=== PATIENT | female | born 1995 | race Caucasian/White ===

== ENCOUNTER 2020-01-10 08:37 | Emergency (ER) | payer OTHER, SELFPAY ==
[2020-01-10 08:49] VITALS: BP 154/102; PULSE 20; RESP 20; TEMP 37.2; O2SAT 100
--- NOTE | 2020-01-10 08:49 | ED.GENADULT ---
HPI - General Adult General Chief complaint: Ear Stated complaint: Left ear pain/clogged Source: patient and RN notes reviewed Mode of arrival: ambulatory Limitations: no limitations History of Present Illness HPI narrative: This is a 24 years old female presents to the office for an evaluation of left ear pain for two days. Associated with cough for several days. She also stated that she cannot hear really well from her left ear.Stated her daughter was sick with similar symptoms about a week ago; however she is doing better now. She admits to smoking half a pack a day.She has tried [id number] cold and cough medicine for her symptoms.While she is here she also would like me to know that she has been struggling on how to control her panic attack. She has a doctor appointment on January regarding it. Related Data Home Medications Medication Instructions Recorded Confirmed loratadine [Claritin] 10 mg PO DAILY 01/10/20 01/10/20 montelukast [Singulair] 10 mg PO DAILY 01/10/20 01/10/20 propranolol 01/10/20 Allergies Allergy/AdvReac Type Severity Reaction Status Date / Time No Known Allergies Allergy Verified 01/10/20 08:52 Review of Systems Review of Systems: Narrative: CONSTITUTIONAL: Reports fever and feeling achy ENT:Reports sinus congestion, runny nose and left ear pain. CARDIOVASCULAR: Denies chest pain, palpitation RESPIRATORY: Denies dyspnea, wheezing. Reports cough GASTROINTESTINAL: Denies abdominal pain. Reports nausea, vomiting, diarrhea since last night; her is sick with similar illness. GENITOURINARY: Denies urinary symptoms SKIN: Denies rash MUSCULOSKELETAL: Denies acute back pain NEUROLOGIC: Denies lightheaded PMFSH Past Medical History Medical History (Updated 01/10/20 @ 09:32 by SHELLY Goldberg) Panic attack Social History Social History (Updated 01/10/20 @ 09:32 by SHELLY Goldberg) Smoking status: Current every day smoker Comments At time of signature, I agree with nursing past medical, surgical, social and family history. There is no relevant family history pertinent to the presenting complaint. Exam Narrative: Exam Narrative: GENERAL: This is a well-nourished, well-developed patient, in no apparent distress. EYES: Sclera clear/white. Vision is grossly intact. EARS: External ears normal, auditory canals clear and without drainage, TMs normal without perforation. Hearing grossly intact. NOSE: External nose normal with no obvious nasal discharge, nares without redness, no rhinorrhea. THROAT: Mucous membranes moist, posterior pharynx clear. NECK: Neck supple, non-tender without lymphadenopathy, masses or thyromegaly. CARDIOVASCULAR: Regular rate and rhythm without murmurs, gallops, or rubs. RESPIRATORY: Clear to auscultation. Breath sounds equal bilaterally. No wheezes, rales, or rhonchi. GASTROINTESTINAL: Abdomen soft, non-tender, nondistended. Bowel sounds are active. No hepato-splenomegaly, or palpable masses. No guarding. SKIN: warm, intact with no suspicious lesions or rash, good texture and turgor. NEURO: awake, alert, and oriented to person, place and time. There were no obvious focal neurologic abnormalities. Steady gait Haworth Coma Scale Eye Opening: Spontaneous 4 Haworth Coma Scale Motor: Obeys Commands 6 Alfonso Coma Scale Verbal: Oriented 5 Course Vital Signs Vital signs: Vital Signs Temperature 99.0 F 01/10/20 08:49 Pulse Rate 20 L 01/10/20 08:49 Respiratory Rate 20 01/10/20 08:49 Blood Pressure 154/102 H 01/10/20 08:49 Pulse Oximetry 100 01/10/20 08:49 Temperature 99.0 F 01/10/20 08:49 Pulse Rate 20 L 01/10/20 08:49 Respiratory Rate 20 01/10/20 08:49 Blood Pressure 154/102 H 01/10/20 08:49 Pulse Oximetry 100 01/10/20 08:49 Medical Decision Making [facility] Narrative Medical decision making narrative: Elevated BP noted: patient is informed that they may have pre-hypertension or hypertension based on a blood pr
[2020-01-10 09:14] VITALS: BP 138/95
== END 2020-01-10 09:15 | disposition home or self-care (01) ==
PROVIDERS: Emergency Provider Nurse Practitioner
DX: H66.92 Otitis media, unspecified, left ear (principal); F17.200 Nicotine dependence, unspecified, uncomplicated
CPT/HCPCS: 99213; G0463

== ENCOUNTER 2020-02-04 16:52 | Emergency (ER) | payer OTHER, SELFPAY ==
[2020-02-04 17:00] VITALS: BP 142/87; PULSE 105; RESP 18; TEMP 37.1; O2SAT 100
--- NOTE | 2020-02-04 17:17 | ED.DENTAL ---
HPI - Dental/Oral General Chief complaint: Dental/Oral Stated complaint: tooth ache Time Seen by Provider: 02/04/20 17:05 Source: patient and RN notes reviewed Mode of arrival: ambulatory Limitations: no limitations History of Present Illness HPI Narrative: Patient presents today complaining of left upper dental pain x3 days and has been worsening since onset with facial swelling. Denies fever, shortness of breath, difficulty swallowing. She has been taking ibuprofen at home for pain. Currently rates her pain 8/10. She has an appointment set up for next week, but the office wants her on antibiotics before she is seen. She was on Augmentin 3 weeks ago for otitis media. MD Complaint: tooth pain Related Data Home Medications Medication Instructions Recorded Confirmed loratadine [Claritin] 10 mg PO DAILY 01/10/20 02/04/20 montelukast [Singulair] 10 mg PO DAILY 01/10/20 02/04/20 Allergies Allergy/AdvReac Type Severity Reaction Status Date / Time No Known Allergies Allergy Verified 02/04/20 17:10 Review of Systems Review of Systems: Narrative: CONSTITUTIONAL: Denies body aches, fever, chills, or sweats. EYES: Denies visual changes, redness, or discharge. ENT: Denies rhinorrhea, congestion, sore throat, or otalgia. Dental pain, facial swelling CARDIOVASCULAR: Denies chest pain, palpitations, or edema. RESPIRATORY: Denies cough or dyspnea. GASTROINTESTINAL: Denies abdominal pain, nausea, vomiting, or diarrhea. GENITOURINARY: Denies dysuria or hematuria. SKIN: Denies rash, itching, or wounds. MUSCULOSKELETAL: Denies back pain, joint pain, or myalgia. NEUROLOGIC: Denies headache, numbness, tingling, or weakness. PSYCH: Denies depression or anxiety. [facility] Past Medical History Medical History (Updated 02/04/20 @ 17:23 by Dorcas Brewer, SHELLY, ) Panic attack Social History Social History (Updated 01/10/20 @ 09:32 by SHELLY Goldberg) Smoking status: Current every day smoker Comments At time of signature, I have reviewed and agree with nursing past medical, surgical, social and family history unless otherwise noted. Please see nursing chart for further information. There is no relevant family history pertinent to the presenting complaint Exam Narrative: Exam Narrative: GENERAL: Well-appearing, well-nourished, and in no acute distress. HEAD: Normocephalic, atraumatic. EYES: EOMI. No redness or drainage. Conjunctivae normal. ENT: Mucous membranes pink and moist. Pain and large khadra to took #14. Mild left facial swelling. NECK: Normal AROM. Supple. No lymphadenopathy. CHEST: No respiratory distress. Clear to auscultation. HEART: Regular rate and rhythm. No murmur appreciated. Normal peripheral pulses. EXTREMITIES: Normal range of motion. No edema. SKIN: Warm, dry, no rash. Capillary refill normal. Normal skin turgor. NEURO: No focal deficits. Alert and oriented x3. Gait steady. PSYCH: Normal affect. No signs of depression or anxiety. Course Vital Signs Vital signs: Vital Signs Temperature 98.8 F 02/04/20 17:00 Pulse Rate 105 H 02/04/20 17:00 Respiratory Rate 18 02/04/20 17:00 Blood Pressure 142/87 H 02/04/20 17:00 Pulse Oximetry 100 02/04/20 17:00 Temperature 98.8 F 02/04/20 17:00 Pulse Rate 105 H 02/04/20 17:00 Respiratory Rate 18 02/04/20 17:00 Blood Pressure 142/87 H 02/04/20 17:00 Pulse Oximetry 100 02/04/20 17:00 Reviewed. Pt has been instructed to follow up with her PCP regarding her elevated blood pressure today. MDM - Dental/Oral Differential Diagnosis Differential diagnosis: Likely gingival abscess, dental caries, toothache, dental abscess and fracture of tooth Critical Care Time Critical Care Time Critical Care Time: No Discharge Plan Discharge Clinical Impression: Toothache Patient Disposition: Home, Self-Care Condition: Stable Instructions: Dental Abscess (ED) Additional Instructions: Please take clindamycin as prescri
== END 2020-02-04 17:25 | disposition home or self-care (01) ==
PROVIDERS: Emergency Provider Nurse Practitioner
DX: K08.89 Other specified disorders of teeth and supporting structures (principal); F17.200 Nicotine dependence, unspecified, uncomplicated
CPT/HCPCS: 99213; G0463

== ENCOUNTER 2025-05-18 08:01 | Emergency (ER) | payer OTHER, SELFPAY ==
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
--- OUTSIDE RECORDS SUMMARY | 2025-05-18 08:03 | XMS_ITS | Clinical Summary ---
Author Organization [facility] Address [address] [place] [address] Phone Care Team Providers Care Deck Engine Operator Name Role Phone Oswald Carbajal MD Primary Care Provider Carola Eldridge APRN, FINE UNHAIRER Unavailable Allergies No known active allergies Medications MONTELUKAST SODIUM PO Take by mouth. Activ e fenofibrate 160 MG Tablet TAKE 1 TABLET BY MOUTH EVERY DAY 0 Active busPIRone (BUSPAR) 10 MG Tablet TAKE 1 TABLET BY MOUTH TWICE A DAY NEEDED 0 Active FLUoxetine (PROZAC) 40 MG Capsule TAKE 1 CAPSULE BY MOUTH EVERY DAY 0 Active Loratadine (CLARITIN PO) Take by mouth. A ctive HYDROcodone-acet aminophen (NORCO) 5-325 MG TabletIndication s:DDD (degenerative disc disease), thoracic Take 1 Tablet by mouth every 8 hours as needed for Moderate or more severe pain. 12 Tablet 2 Active Additional Information Patient not taking.Reported on 05/10/2023 naproxen (NAPROSYN) 500 MG Tablet Take 1 Tablet by mouth 2 times daily as needed for Mild or more severe pain. 20 Tablet 2 Active Additional Information Patient not taking.Reported on 05/08/2023 Meloxicam 15 MG TABLET DISPERSIBLE Take by mouth. Act kiera Norgestimate-eth inyl estradiol (Estarylla) 0.25-35 MG-MCG Tablet Take 1 Tablet by mouth daily. Active ALBUTEROL IN take by inhalation. Active Active Problems Problem Noted Date Diagnosed Date ENEDR (obstructive sleep apnea) 05/10/2023 Obesity due to excess calories without serious c omorbidity 05/10/2023 Social History Tobacco Use Types Packs/Day Years Used Date Smoking Tobacco: Former Cigarettes Q uit: 02/05/2023 Smokeless Tobacco: Never Tobacco Cessation:Counseling Given: Not Answered Sexually Active Control Partners Comments Not Currently Comments No Sex and Gender Information Value Date Recorded Sex Assigned at Not on file Legal Sex Female 8:24 AM CDT Gender Identity Not on file Sexual Orientation Not on file Last Filed Vital Signs Vital Sign Reading Time Taken Comments Blood Pressure 120/70 05/10/2023 11:17 AM CDT Pulse 90 05/10/2023 11:17 AM CDT Temperature 36.4 C (97.5 F) 05/10/2023 11:17 AM CDT Respiratory Rate 16 09/23/2022 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 Oxygen Saturation 98% 05/10/2023 11:17 AM CDT Inhaled Oxygen Concentration - - Weight 108.9 kg (240 lb) 05/10/2023 11:17 AM CDT Height 165.1 cm (5' 5) 09/23/2022 1:42 PM ASSISTANT FAMILY TEACHER Body Mass Index 39.94 09/23/2022 1:42 PM ASSISTANT FAMILY TEACHER Plan of Treatment Health Maintenance Due Date Last Done Comments Hepatitis C Virus (HCV) Screening 1995 TdaP Immunization 1995 Human Papillomavirus (HPV) Immunization (1 - 3-dose series) 2010 Hepatitis B Immunization (1 of 3 - 19+ 3-dose series) 2014 Pap Smear 2016 SARS-COV-2 Immunization ( - season) 2024 Influenza Immunization (#1) 2025 Respiratory Syncytial Virus (RSV) Immunization (Adult) (1 - 1-dose 75+ series) 2070 Meningococcal Immunization (ACWY) Aged Out No longer eligible based on patient's age to complete this topic Pneumococcal Immunization Combined Aged Out No longer eligible based on patient's age to complete this topic Rotavirus Immunization Aged Out No lo nger eligible based on patient's age to complete this topic Insurance MEDICAID [place] [employer] [facility] Care Teams Deck Engine Operator Relationship Specialty Start Date End Date Oswald Carbajal MD [address] [facility] [address] [place] [address] PCP - General Internal Medicine 05/10/23 Carola Eldridge APRN, FINE UNHAIRER #[address] [address] Nurse Practitioner Advanced Practice Nurse 05/10/23
--- OUTSIDE RECORDS SUMMARY | 2025-05-18 08:03 | XMS_ITS | Encounter Summary ---
Author Organization [facility] Address [facility] [facility] [place] [address] Care Team Providers Care Search Consultant Name Role Phone Liss Casillas APRN-EMERGENCY PHYSICIAN Unavailable [phone] Pcp, None Primary Care Provider Belén Pineda APJESSEE-EMERGENCY PHYSICIAN Primary Care Provider [phone] Reason for Visit * Reason Onset Date Comments Appointment 03/06/2025 Encounter Details Date Type Department Care Team (Late st Contact Info) Description 03/06/2025 Telephone [facility] - DOCK ASSOCIATE [address] [facility] [address] [place] [address] Nuria Adame APRN-EMERGENCY PHYSICIAN [address] [place] [address] Appointment Social History Tobacco Use Types Packs/Day Years Used Date Smoking Tobacco: Every Day Cigarettes 0.5 1.1 Started: 03/2024 Smokeless Tobacco: Never Alcohol Use Standard Drinks/Week Comments No 0 (1 standard drink = 0.6 oz pur e alcohol) Education Answer Date Recorded What is the highest level of school you have completed or the highest degree you have received? 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 Not on file Not on file Not on file documented as of this encounter Plan of Treatment Upcoming Encounters Date Type Department Care Team (Late st Contact Info) Description 06/03/2025 11:00 AM CDT Office Visit [facility] - DOCK [facility]OCIATE [address] [facility] [address] [place] [address] Trent Hicks MD [address] [facility] [address] [place] [address] documented as of this encounter Visit Diagnoses Not on filedocumented in this encounter Care Teams Search Consultant Relationship Specialty Start Date End Date Pcp, None [address] [place] [address] PCP - General 12/23/24 05/04/25 Belén Villalta APNP-EMERGENCY PHYSICIAN [address] [facility] [place] [address] PCP - General Family Medicine 05/05/25 Liss Casillas, COAT CHECK ATTENDANT-EMERGENCY PHYSICIAN [address] [place] [place], [place] [id number] Nurse Practitioner Family 05/06/18 documented as of this encounter
--- OUTSIDE RECORDS SUMMARY | 2025-05-18 08:03 | XMS_ITS | Clinical Summary ---
Author Organization [facility] Address [address] [place] [address] Care Team Providers Care Business Law Professor Name Role Phone Liss Casillas KAIAKO KURA TUARUA-CERTIFIED MASTER LOCKSMITH Unavailable [phone] Belén Villalta APNP-CERTIFIED MASTER LOCKSMITH Primary Care Provider [phone] Source Comments [facility],non-owned Affiliates and Associated Physician Practices is amultiple site organization consisting of ambulatory clinics and hospital sitesin [place], [place], [place] and [place]. This disclosure is being madepursuant to the Care Everywhere program and may not contain all information available regarding this patient. Last updated 18.[facility] Allergies No known active allergies Medications * Be aware that medications may not be up to date on this document. Alwaysverify current medications with the patient. albuterol HFA (PROVENTIL;VENT KRYSTLE;PROAIR) 108 (90 Base) MCG/ACT inhaler Take 2 (two) puffs by mouth every 4 hours as needed 12 9 Active ibuprofen (MOTRIN) 800 MG tablet Take 1 (one) tablet by mouth 3 times daily 0 9 Active loratadine (CLARITIN) 10 MG tablet Take 1 (one) tablet by mouth once daily 9 Active busPIRone (BUSPAR) 10 MG tablet 0 Active FLUoxetine (PROZAC) 20 MG tablet Take 1 (one) tablet by mouth once daily 0 Active fenofibrate (LOFIBRA) 160 MG tablet Take 1 (one) tablet by mouth once daily 0 Active YURIDIA 0.25-35 MG-MCG tablet Take 1 (one) tablet by mouth once daily 1 Active vitamin D3-cholecalcife rol (CHOLECALCIFERO L) 25 MCG (1000 UNITS) tablet Take 1 (one) tablet by mouth once daily 30 tablet 4 1 Active Additional Information Patient not taking.Reported on 05/05/2025 meloxicam (Mobic) 15 MG tablet TAKE 1 TABLET BY MOUTH EVERY DAY NEEDED WITH MEAL 4 Active blood glucose (OneTouch Verio) test stripIndication s:Type 2 diabetes mellitus without complication, unspecified whether middle or intermediate school principal insulin use (HCC) Use 1 (one) strip 5 times daily 150 strip 11 5 Active ONETOUCH DELICA PLUS 30G FINE LANCETSIndicati ons:Type 2 diabetes mellitus without complication, unspecified whether detention insulin use (HCC) Use 1 Each 5 times daily 100 Each 11 5 Active Blood Glucose Monitoring Suppl (OneTouch Verio Flex System) w/Device KITIndications: Type 2 diabetes mellitus without complication, unspecified whether detention insulin use (HCC) Use 1 kit as directed 1 kit 5 Active metFORMIN ER 24hr (Glucophage XR) 500 MG tabletIndicatio ns:New onset type 2 diabetes mellitus (HCC) Take 1 (one) tablet by mouth daily with dinner 30 tablet 3 5 Active Vit-Fe Fumarate-FA (Trinate) TABS Take 1 tablet by mouth once daily 30 tablet 3 5 Active Lantus SoloStar penIndications: Type 2 diabetes mellitus treated with insulin (HCC) Starting dose: inject 20 units in the evening. Increase up to 50 units per day only as instructed. 15 mL 6 5 Active Insulin Pen Needle 32G X 4 MM MISCIndications :Type 2 diabetes mellitus treated with insulin (HCC) 1 Each by Injection route once for 1 dose 100 Each 6 5 05/05/20 25 Active Problems Problem Noted Date Diagnosed Date New onset type 2 diabetes mellitus 02/15/2025 Female infertility 02/15/2025 Overview (02/15/2025): No in 7 years. Irregular, infrequent menses (nonexistent?). In the past she had an US which showed some scar which appeared to be clear with a saline US and balloon procedure. Hypertriglyceridemia without hypercholesterolemi a 02/15/2025 Overview (02/15/2025): Treated in past with fenofibrate, cholesterol 191, triglycerides 676, but patient on an all meat diet Nonalcoholic steatohepatitis (ARMSTRONG) 02/15/2025 Mild intermittent asthma without complication Overview (02/15/2025): Uses albuterol infrequently Type 2 diabetes mellitus wit hout complication, without long-term current use of insulin 02/10/2025 Overview (02/10/2025): Family hx MGF and his siblings Obesity, Class III, BMI 40-49.9 (morbid obesity) 02/10/2025 Overview (02/15/2025): Lost about 10 lb over past 3 months History of delivery 02/10/2025 Overview (02/15/2025): As a teenager 34 weeks Generalized anxiety disorder 02/10/2025 Overview (02/15/2025): Treated with buspirone and fluoxetine ENDER (obstructive sleep apnea) 05/10/2023 Overview (02/15/2025): Uses CPAP PCOS (polycystic ovarian syndrome) 02/25/2018 Overview (02/15/2025): Previously treated with metformin Current smoker 01/19/2016 Overview (02/15/2025): Current smoker, 5-10 per day, smoked x 15 years Encounters Date Type Department Care Team Description 05/05/2025 3:20 PM CDT Office Visit [facility] - MANAGER OF ORGANIZATIONAL DEVELOPMENT [address] [place] [address] Trent Otero MD New onset type 2 diabetes mellitus (HCC) (Primary Dx) 05/05/2025 2:30 PM CDT Office Visit [facility] - MANAGER OF ORGANIZATIONAL DEVELOPMENT [address] [place] [address] Julissa Jara, RD/LD Type 2 diabetes mellitus treated with insulin (HCC) (Primary Dx); Obesity, Class III, BMI 40-49.9 (morbid obesity) (HCC); Encounter for preconception consultation; PCOS (polycystic ovarian syndrome) 05/05/2025 Travel 03/09/2025 Telephone [facility] - MANAGER OF ORGANIZATIONAL DEVELOPMENT [address] [place] [address] Katarina Storm MD Appointment 03/06/2025 Telephone [facility] - MANAGER OF ORGANIZATIONAL DEVELOPMENT [address] [place] [address] Nuria Adame APRN-CERTIFIED MASTER LOCKSMITH Appointment 02/18/2025 Refill [facility] - MANAGER OF ORGANIZATIONAL DEVELOPMENT [address] [place] [address] Katarina Storm MD Refill Request 02/17/2025 Refill [facility] - MANAGER OF ORGANIZATIONAL DEVELOPMENT [address] [place] [address] Katarina Storm MD Refill Request from Last 3 Months Family History Medical History Relation Name Comments CAD (Coronary Artery Disease) Father CAD (Coronary Artery Disease) Maternal Grandfather Diabetes - Type 2 Maternal Grandfather Cancer - Breast Maternal Grandmother Cancer - Uterine Maternal Grandmother Mood Disorder Mother CAD (Coronary Artery Disease) Paternal Grandfather Relation Name Status Comments Father Maternal Grandfather Maternal Grandmother Mother Paternal Grandfather Social History Tobacco Use Types Packs/Day Years Used Date Smoking Tobacco: Every Day Cigarettes 0.5 1.1 Started: 03/2024 Smokeless Tobacco: Never Tobacco Cessation:Ready to Q uit: Yes; Counseling Given: Yes Alcohol Use Standard Drinks/Week Comments No 0 (1 standard drink = 0.6 oz pur e alcohol) Education Answer Date Recorded What is the highest level of school you have completed or the highest degree you have received? 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 Not on file Not on file Not on file Last Filed Vital Signs Vital Sign Reading Time Taken Comments Blood Pressure 132/84 05/05/2025 2:14 PM CDT Pulse 104 02/25/2018 9:45 AM CDT Temperature 35.6 C (96.1 F) 01/17/2021 1:52 PM CDT Respiratory Rate - - Oxygen Saturation - - Inhaled Oxygen Concentration - - Weight 117 kg (258 lb) 05/05/2025 2:14 PM CDT Height 165.1 cm (5' 5) 05/05/2025 2:14 PM CDT Body Mass Index 42.93 05/05/2025 2:14 PM CDT Plan of Treatment Upcoming Encounters Date Type Department Care Team (Late st Contact Info) Description 06/03/2025 11:00 AM CDT Office Visit [facility] - MANAGER OF ORGANIZATIONAL DEVELOPMENT [address] [place] [address] Trent Hicks MD [address] [place] [address] Health Maintenance Due Date Last Done Comments HIV SCREENING 2010 HEPATITIS C SCREENING 11/18/2013 DTAP/TDAP/TD VACCINES (1 - Tdap) 2014 HEPATITIS B VACCINE (1 of 3 - 19+ 3-dose series) 2014 PNEUMOCOCCAL VACCINE (1 of 2 - PCV) 2014 PAP SMEAR 2016 HPV VACCINE (1 - 3-dose SCDM series) 2022 COVID-19 VACCINE ( season) 2024 DEPRESSION SCREENING 10/29/2024 DIABETES RETINOPATHY SCREENING 02/10/2025 DIABETES-FOOT EXAM WITH MONOFILAMENT 02/10/2025 INFLUENZA VACCINE (#1) 2025 DIABETES-HGB A1C 11/05/2025 05/05/2025, 05/2025, 02/10/2025, Additional history exists DIABETES - URINE PROTEIN SCREENING 02/10/2026 02/10/2025 DIABETES-SERUM CREATININE 02/10/2026 02/10/2025 ZOSTER VACCINE (1 of 2) 2045 HIB VACCINE Aged Out No longer eligi ble based on patient's age to complete this topic MENINGOCOCCAL (Group B) VACCINE SHARED DECISION-MAKING Aged Out No longer eligible based on patient's age to complete this topic MENINGOCOCCAL GROUPS A/C/Y/W VACCINE Aged Out No longer eligible based on patient's age to complete this topic Procedures Procedure Name Priority Date/Time Associated Diagnosis Comments HEMOGLOBIN A1C - POINT OF CARE (AMB) [facility] Routine 05/05/2025 2:47 PM CDT New onset type 2 diabetes mellitus (HCC) HEMOGLOBIN A1C - POINT OF CARE (AMB) [facility] Routine 05/05/2025 2:33 PM CDT New onset type 2 diabetes mellitus (HCC) MICROALB/CREAT RATIO URINE RANDOM PANEL Routine 02/10/2025 1:45 PM CDT New onset type 2 diabetes mellitus (HCC) Encounter for preconception consultation COMPREHENSIVE METABOLIC PANEL 02/10/2025 1:45 PM CDT from Last 3 Months or Most Recently Relevant to Health Maintenance Results * HEMOGLOBIN A1C - POINT OF CARE (AMB) [facility] (05/05/2025 2:47 PM CDT) Only the most recent of2 resultswithin the time period is included. Hemoglobin A1c POCT 6.3 % [facility] [address] BLOOD SPECIMEN / Unknown 05/05/2025 2:47 PM CDT us Trent Otero MD LAB - POINT OF CARE ORDERABLES Final Result [address] [place] [address], [facility] [phone] * (ABNORMAL) MICROALB/CREAT RATIO URINE RANDOM PANEL (02/10/2025 1:45 PM CDT) Creatinine Urine 203 20 - 275 mg/dL [facility] Microalbumin Urine 10.8 mg/dL [facility] Comment: Reference Range Not established Microalbumin/Creat inine Ratio 53(H) <30 mg/g creat [facility] Comment: The ADA defines abnormalities in albumin excretion as follows: Albuminuria Category Result (mg/g creatinine) Normal to Mildly increased <30 Moderately increased 30-299 Severely increased > OR = 300 The ADA recommends that at least two of three specimens collected within a 3-6 month period be abnormal before considering a patient to be within a diagnostic category. Test Performed at: [facility] [address] ELISEO PARKINSON MD Urine URINE SPECIMEN OBTAINED BY CLEAN CATCH PROCEDURE / Unknown 02/10/2025 1:45 PM CDT 02/10/2025 1:45 PM CDT us Janeth Li MD LAB - URINE CHEMISTRY ORDERABL ES Final Result Performing Organization Address City/[facility]/ZIP Co de Phone Number [facility] [address] [place] [address] * COMPREHENSIVE METABOLIC PANEL (02/10/2025 1:45 PM CDT) Glucose 88 65 - 99 mg/dL [facility] Comment: Fasting reference interval BUN 14 7 - 25 mg/dL [facility] Creatinine 0.56 0.50 - 0.96 mg/dL [facility] eGFR by Cystatin C 127 > OR = 60 mL/min/1. 73m2 [facility] BUN/Creatinine Ratio SEE NOTE: 6 - 22 (calc) [facility] Comment: Not Reported: BUN and Creatinine are within reference range. Sodium 137 135 - 146 mmol/L [facility] Potassium 4.1 3.5 - 5.3 mmol/L [facility] Chloride 101 98 - 110 mmol/L [facility] CO2 25 20 - 32 mmol/L [facility] Calcium 9.7 8.6 - 10.2 mg/dL [facility] Protein Total 7.4 6.1 - 8.1 g/dL [facility] Albumin 4.6 3.6 - 5.1 g/dL [facility] Globulin Total 2.8 1.9 - 3.7 g/dL (calc) [facility] Albumin/Globulin Ratio 1.6 1.0 - 2.5 (calc) [facility] Bilirubin Total 0.5 0.2 - 1.2 mg/dL [facility] Alkaline Phosphatase 86 31 - 125 U/L [facility] AST 19 10 - 30 U/L [facility] ALT 25 6 - 29 U/L [facility] Comment: Test Performed at: [facility] [id number] [place] [address] ELISEO PARKINSON MD 02/10/2025 1:45 PM CDT 02/10/2025 1:45 PM CDT Janeth Li MD LAB - CHEMISTRY ORDERABLES Fin al Result Performing Organization Address City/State/[facility] Co de Phone Number [facility] [address] [place] [address] from Last 3 Months or Most Recently Relevant to Health Maintenance Insurance [facility] [employer] [facility] [facility] [employer] [facility] [facility] Member Subscriber Plan / Payer (Ef fective 2019-Present) Name:[place] Relation to Subscriber:Spouse Name:ANJUM PARISH Subscriber ID:Not on file Date of :1992 Payer ID:Not on file Type:PPO Address: [address] [employer] [facility] [facility] Member Subscriber Plan / Payer (Ef fective 2019-Present) Name:[place] Relation to Subscriber:Spouse Name:ANJUM PARISH Subscriber ID:Not on file Date of :1992 Payer ID:Not on file Type:PPO Address: [address] [facility] [employer] [facility] [facility] Member Subscriber Plan / Payer (Ef fective 2019-Present) Name:[place] Relation to Subscriber:Spouse Name:ANJUM PARISH Subscriber ID:Not on file Date of :1992 Payer ID:Not on file Type:PPO Address: [place] [id number] [facility] [employer] Member Subscriber Plan / Payer (Ef fective 2019-Present) Name:[place] Relation to Subscriber:Spouse Name:ANJUM PARISH Subscriber ID:Not on file Date of :1992 Payer ID:Not on file Type:PPO Address: [place] [id number] [facility] Member Subscriber Plan / Payer (Ef fective 2019-Present) Name:Grey[place] Relation to Subscriber:Spouse Name:ANJUM PARISH Subscriber ID:Not on file Date of :1992 Payer ID:Not on file Type:PPO Address: [address] Member Subscriber Plan / Payer (Ef fective for All Dates) Name:Leigh Parisha Celeste Relation to Subscriber:Self Name:GREY[place]IL Payer ID:Not on file Group ID:Not on file Type:Medicaid [place] Address: [address] [employer] Member Subscriber Plan / Payer (Ef fective 2019-Present) Name:[place] Relation to Subscriber:Spouse Name:GREYANJUM Subscriber ID:Not on file Date of :1992 Payer ID:Not on file Type:PPO Address: [address] Member Subscriber Plan / Payer (Ef fective for All Dates) Name:Leigh Parisha Celeste Relation to Subscriber:Self Name:[place] Payer ID:Not on file Group ID:Not on file Type:Medicaid [place] Address: [address] [employer] Member Subscriber Plan / Payer (Ef fective 2019-Present) Name:[place] Relation to Subscriber:Spouse Name:ANJUM PARISH Subscriber ID:Not on file Date of :1992 Payer ID:Not on file Type:PPO Address: [address] [facility] Member Subscriber Plan / Payer (Ef fective 2019-Present) Name:[place] Relation to Subscriber:Spouse Name:GREYANJUM Subscriber ID:Not on file Date of :1992 Payer ID:Not on file Type:PPO Address: [address] [facility] [facility] Member Subscriber Plan / Payer (Ef fective 2019-) Name:[place] Relation to Subscriber:Spouse Name:ANJUM PARISH Subscriber ID:Not on file Date of :1992 Payer ID:Not on file Type:PPO Address: [address] [facility] [facility] Member Subscriber Plan / Payer (Ef fective 2019-Present) Name:[place] Relation to Subscriber:Spouse Name:ANJUM PARISH Subscriber ID:Not on file Date of :1992 Payer ID:Not on file Type:PPO Address: [address] [facility] Member Subscriber Plan / Payer (Ef fective 2019-Present) Name:[place] Relation to Subscriber:Spouse Name:GREYANJUM Subscriber ID:Not on file Date of :1992 Payer ID:Not on file Type:PPO Address: [address] [facility] Member Subscriber Plan / Payer (Ef fective 2019-Present) Name:[place] Relation to Subscriber:Spouse Name:GREYANJUM Subscriber ID:Not on file Date of :1992 Payer ID:Not on file Type:PPO Address: [address] [facility] Member Subscriber Plan / Payer (Ef fective 2019-Present) Name:[place] Relation to Subscriber:Spouse Name:ANJUM PARISH Subscriber ID:Not on file Date of :1992 Payer ID:Not on file Type:PPO Address: [address] Member Subscriber Plan / Payer (Ef fective for All Dates) Name:[place] Relation to Subscriber:Self Name:[place] PAR[place] Payer ID:Not on file Group ID:Not on file Type:Medicaid [place] Address: [address] [facility] Member Subscriber Plan / Payer (Ef fective 2019-Present) Name:[place] Relation to Subscriber:Spouse Name:ANJUM PARISH Subscriber ID:Not on file Date of :1992 Payer ID:Not on file Type:PPO Address: [address] Member Subscriber Plan / Payer (Ef fective for All Dates) Name:[place] Relation to Subscriber:Self Name:[place] Payer ID:Not on file Group ID:Not on file Type:Medicaid [place] Address: [address] [employer] Member Subscriber Plan / Payer (Ef fective 2019-Present) Name:[place] Relation to Subscriber:Spouse Name:ANJUM PARISH Subscriber ID:Not on file Date of :1992 Payer ID:Not on file Type:PPO Address: [place] [id number] [facility] Member Subscriber Plan / Payer (Ef fective for All Dates) Name:[place] Relation to Subscriber:Self Name:BASIL PARISH Payer ID:Not on file Group ID:Not on file Type:Medicaid [place] Address: [address] [employer] Member Subscriber Plan / Payer (Ef fective 2019-Present) Name:[place] Relation to Subscriber:Spouse Name:ANJUM PARISH Subscriber ID:Not on file Date of :1992 Payer ID:Not on file Type:PPO Address: [address] Member Subscriber Plan / Payer (Ef fective for All Dates) Name:[place] Relation to Subscriber:Self Name:BASIL PARISH Payer ID:Not on file Group ID:Not on file Type:Medicaid [place] Address: [address] [employer] Member Subscriber Plan / Payer (Ef fective 2019-Present) Name:[place] Relation to Subscriber:Spouse Name:ANJUM PARISH Subscriber ID:Not on file Date of :1992 Payer ID:Not on file Type:PPO Address: [address] [facility] MEDICAID - OUT OF [facility] [address] [address] SYSTEMS MEDICAID - [place] [address] [address] [place] [address] [facility] MEDICAID - OUT OF STATE Member Subscriber Plan / Payer (Ef fective for All Dates) Name:[place] Relation to Subscriber:Self Name:BASIL PARISH Payer ID:Not on file Group ID:Not on file Type:Medicaid Address: [address] [facility] MEDICAID - [facility] [employer] MEDICAID - OUT OF [facility] Care Teams Business Law Professor Relationship Specialty Start Date End Date Belén Villalta APNP-CNP [address] [place] [address], [address] [place] [address] PCP - General Family Medicine 05/05/25 Liss Casillas APRN-LUKE [address] [place], [place] [id number] Nurse Practitioner Family 05/06/18
--- OUTSIDE RECORDS SUMMARY | 2025-05-18 08:03 | XMS_ITS | Continuity of Care Document ---
Author Organization [facility] Address [address] [place] [address] [address] [place] [address] Phone Care Team Providers Care Aluminum Siding Mechanic Name Role Phone Alicia Li Unavailable Unavailable Advance Directives Directive Yes / No Effective Date File Name No Information Encounters Encounter Description Practice Location Reason(s) For Visit Diagnoses Date Provider Providers Copied on Encounter formerly [facility], [address] [place] [address] [address], [place], [place], [id number], [place] tel:[phone] [facility] No Information Martin-1 0-200 2 Jen Vragas. [address] [facility] [address] , [address], [place], [address], [place]. tel:[phone] Family History Family Member Type Diagnosis Age At Onset No Information Payers Payer name Insurance type Covered constitution party ID Authoriza tion(s) Medicaid [facility] [id number] Social History Type Description Quantity Date Captured Comments Sex Female Smoking Status No Information Chief Complaint And Reason For Visit No Information Reason For Referral Reason For Referral No Information History Of Present Illness Encounter Date Complaint History Of Prese nt Illness No Information Functional Status Date Functional Assessmen t No Information Instructions Date Instruction Additional Infor mation No Information Assessments Type Assessment Date No Information Patient Care Teams Name Effective Dates (start - stop) Status Members No Information
--- OUTSIDE RECORDS SUMMARY | 2025-05-18 08:06 | XMS_ITS | Continuity of Care Document ---
Author Organization [facility] Address [address] [place] [address] [address] [place] [address] Phone Care Team Providers Care Integration Project Manager Name Role Phone Alicia Li Unavailable Unavailable Advance Directives Directive Yes / No Effective Date File Name No Information Encounters Encounter Description Practice Location Reason(s) For Visit Diagnoses Date Provider Providers Copied on Encounter [facility], [address] [place] [address] [address], [place], [place], [id number], [place] tel:[phone] [facility] No Information Martin-1 0-[address] 2 Jen Vargas. [address] [facility] , [address], [place], [address], [place]. tel:[phone] Family History Family Member Type Diagnosis Age At Onset No Information Payers Payer name Insurance type Covered constitution party ID Authoriza tion(s) Medicaid PENDING SALE TO [facility] [id number] Social History Type Description Quantity Date Captured [...]
[2025-05-18 08:25] VITALS: BP 154/88; PULSE 87; RESP 16; TEMP 36.4; O2SAT 100
== END 2025-05-18 08:22 | disposition home or self-care (01) ==
PROVIDERS: Emergency Provider Nurse Practitioner; PCP Nurse Practitioner Family
DX: S93.402A Sprain of unspecified ligament of left ankle, initial encounter (principal); S96.912A Strain of unspecified muscle and tendon at ankle and foot level, left foot, initial encounter; X58.XXXA Exposure to other specified factors, initial encounter; F17.200 Nicotine dependence, unspecified, uncomplicated
CPT/HCPCS: 99212; G0463

== ENCOUNTER 2025-10-01 12:27 | Emergency (ER) | payer OTHER, SELFPAY ==
--- NOTE | 2025-10-01 12:31 | ED.URI ---
HPI - URI/Sore Throat General Chief Complaint: Upper Respiratory Infection Stated Complaint: chest tight / congestion/cough Time Seen by Provider: 10/01/25 12:35 Source: patient, RN notes reviewed and old records reviewed Mode of arrival: ambulatory Limitations: no limitations History of Present Illness HPI Narrative: 39-year-old female presents to the [facility] with 5 day history of sore throat, cough and congestion. Patient has a history of diabetes. Denies any fevers, chest pain, abdominal pain. States that she has taken TheraFlu, NyQuil and ibuprofen. Onset (ago): day(s) (5) Treatments prior to arrival: cold medicine Related Data Home Medications ?Medication ?Instructions ?Recorded ?Confirmed ?Last Taken ?Type buspirone 10 mg tablet mg 05/18/25 Unknown History insulin glargine 100 unit/mL (3 unit subcut 05/18/25 Unknown History mL) subcutaneous pen (Lantus Solostar U-100 Insulin) vits,calcium no.73-iron tablet 05/18/25 Unknown History fum 28 mg iron-folic acid 1 mg tablet (Trinate) Allergies Allergy/AdvReac Type Severity Reaction Status Date / Time No Known Allergies Allergy Verified 10/01/25 12:29 Review of Systems Review of Systems: All systems reviewed & are unremarkable except as noted in HPI and below Constitutional: Constitutional: Reports no additional constitutional complaints ENT: Reports as per HPI and Reports sore throat Cardiovascular: Cardiovascular: Reports no additional cardiovascular complaints, Denies chest pain and Denies dyspnea Respiratory: Respiratory: Reports as per HPI, Reports chest congestion, Reports cough and Denies dyspnea Musculoskeletal: Musculoskeletal: Reports no additional musculoskeletal complaints Integumentary/Breasts: Skin/Breast: Reports system reviewed and no additional complaints, except as docu PMFSH Past Medical History Medical History Panic attack Social History Social History Smoking status: Current every day smoker Comments At the time of my signature, I reviewed and agree with the nursing past medical, surgical, social, and family history. There is no relevant family history pertinent to the patient complaint. Exam Const: General: cooperative, healthy appearing, comfortable, no acute distress, well developed, alert and well nourished Nutritional Appearance: well nourished and obese Orientation/consciousness: patient oriented x3 Limitations: no limitations HENMT: Head: normal to inspection Ears: hearing grossly normal bilaterally, external ears normal, TM's normal bilaterally, EAC's normal, mastoids normal and no periauricular adenopathy Throat: posterior oropharynx normal, uvula midline, postnasal drainage and no uvular edema Eyes: General: appearance normal, both eyes and all related structures Alignment and Position: alignment normal Neck: Neck: normal visual inspection, full ROM, no lymphadenopathy and no meningeal signs Chest: Chest palpation & inspection: normal inspection of the chest Resp: Effort & Inspection: normal respiratory effort and able to speak in complete sentences Auscultation: clear to auscultation bilaterally, no crackles, no rales, no rhonchi and no wheezes Cardio: Rate: regular rate Skin: General skin exam: normal color and no rashes or lesions noted Neuro: General: patient oriented x3, gait normal, moves all extremities and no meningeal signs Cognition (Neuro): normal cognition Speech: normal speech Gait exam (Neuro): Normal gait present Extrem: General: normal to inspection, full ROM, capillary refill normal and normal gait Psych: Appearance: grossly normal and well kempt Mental Status: mental status grossly normal Speech and movement: Normal speech and movement present and Clear speech present Affect: normal affect Attitude: cooperative Course Course Level of Care: Express Care Visit Vital Signs Vital signs: Vital Signs Temperature 99.0 F 10/01/25 12:34 Pulse Rate 97 10/01/25 12:34 Respiratory Rate 18 10/01/25 12:34 Blood Pressure 166/99 H 10/01/25 12:34 Pulse Oximetry 99 10/01/25 12:34 Oxygen Delivery Room Air 10/01/25 12:34 Temperature 99.0 F 10/01/25 12:34 Pulse Rate 97 10/01/25 12:34 Respiratory Rate 18 10/01/25 12:34 Blood Pressure 166/99 H 10/01/25 12:34 Pulse Oximetry 99 10/01/25 12:34 Oxygen Delivery Room Air 10/01/25 12:34 Reviewed MDM MDM Narrative Medical decision making narrative: patient sitting in exam room. Patient is nontoxic, vitals stable. Patient presents with 5 day history of URI symptoms. Flu COVID negative, blood glucose 130. No acute findings noted on exam. Patient is appropriate for outpatient treatment with close follow-up Discharge instructions reviewed with patient, as well as provided in writing per nursing staff. The instructions also include specific and strict return/GO TO THE ER as well as f/u information. All questions have been answered, and the patient deny any further questions with discharge and discharge plan. Some parts of this dictation were generated by voice recognition software and may contain typographical and/or grammatical inaccuracies. Differential Diagnosis Differential Diagnosis: Differential diagnostic considerations for upper respiratory infection include upper respiratory infection, croup, otitis media, sinusitis, viral infection, bronchitis, influenza, pharyngitis, strep, uvulitis.? Medical Records I have reviewed the following patient records and this information was taken into consideration when formulating the assessment and plan.: previous ER visits Lab Data Labs: Lab Results 10/01/25 10/01/25 Range/Units 12:41 13:01 POC Capillary Glucose 130 H (65-105) mg/dl POC Influenza A Ag Negative (Negative) POC Influenza B Ag Negative (Negative) POC SARS CoV-2 Ag Negative (Negative) reviewed Critical Care Time Critical Care Time Critical Care Time: No Discharge Plan Discharge Clinical Impression: PND (post-nasal drip) Sinusitis Qualifiers: Sinusitis location: pansinusitis Chronicity: acute Recurrence: not specified as recurrent Qualified Code(s): J01.40 - Acute pansinusitis, unspecified Upper respiratory infection Qualifiers: URI type: unspecified viral URI Qualified Code(s): J06.9 - Acute upper respiratory infection, unspecified Patient Disposition: Home Condition: Stable Instructions: Sinusitis (ED), Upper Respiratory Infection (ED), Postnasal Drip (DC) Additional Instructions: Your rapid COVID test were negative Your rapid flu test was negative Your symptoms are likely due to a viral illness, which is not treated with antibiotics. Typically viral infections last 7-10 days, can linger for couple of weeks. It is very important to treat your symptoms. Drink plenty of water, Gatorade, Pedialyte, ice pops or Jell-O. -Alternate Tylenol and Motrin per package directions for fever or pain. You can alternate every 4 hours -Antihistamine medication such as Zyrtec/Claritin/Giuliana during the day can help improve symptoms. -doing daily nasal irrigations can help relieve pressure your sinuses. Things like a Neti pot -Use Flonase twice a day for 5 days then daily to help reduce the inflammation and dry up your sinuses. -You can also use Mucinex. Be sure to drink plenty of water with this medication at least 8 ounces with every dose and it is important to drink 8 to 10 glasses of water per day. Water is a natural decongestant -Eat and drink things that are easy to swallow, like tea or soup, or popsicles. -Oral rinses such as: Salt water gargles and/or may use topical anesthetic (eg. Chloraseptic spray) or lozenges to relieve dryness or throat pain). -Frequent hand washing or hand custom protection officer is one of the best ways to prevent spread of infection. -Using a vaporizer or humidifier at night will also help thin secretions and help with coughing up phlegm. -Follow up with primary care provider in 7-10 days if condition is not improving - For new or worsening symptoms go directly to the nearest ER Patient Language: Samoan Prescriptions: No Action clindamycin HCl 300 mg capsule 300 mg PO Q6H 10 Days Qty: 40 0RF buspirone 10 mg tablet insulin glargine [Lantus Solostar U-100 Insulin] 100 unit/mL (3 mL) insulin pen SUBCUT Trinate 28 mg iron- 1 mg tablet Follow-up/Referrals: Dionne,Barbara Archuleta APN [Primary Care Provider, Unknown] - 2 Weeks Stand Alone Forms: Work/School Release IP Time of Disposition: 12:59
[2025-10-01 12:34] VITALS: BP 166/99; PULSE 97; RESP 18; TEMP 37.2; O2SAT 99
[2025-10-01 13:03] LABS: EDCOVIDSCREEN Negative (Negative); EDINFLUASCREEN Negative (Negative); EDINFLUBSCREEN Negative (Negative)
== END 2025-10-01 13:06 | disposition home or self-care (01) ==
PROVIDERS: Emergency Provider Nurse Practitioner; PCP Nurse Practitioner Family
DX: J01.40 Acute pansinusitis, unspecified (principal); J06.9 Acute upper respiratory infection, unspecified; R09.82 Postnasal drip; E11.9 Type 2 diabetes mellitus without complications; F17.200 Nicotine dependence, unspecified, uncomplicated; Z20.822 Contact with and (suspected) exposure to COVID-19; Z79.4 Long term (current) use of insulin
CPT/HCPCS: 82948; 87426; 87804; 99212; G0463